=== PATIENT | female | born 1940 | race Caucasian/White ===

== ENCOUNTER 2018-04-16 14:01 | Emergency (ER) | payer OTHER ==
[2018-04-16 16:51] LABS: Absolute Lymphocytes (CBC) 0.8 K/uL (0.7-4.9); Absolute Monocytes 2.7 K/uL (0.1-1.3); Basophils % 0.4 % (0-1.3); Hematocrit 29.4 % (36.0-45.0); Lymphocytes % 2.2 % (15.3-44.8); MPV 9.6 fL (7.6-11.3); Monocytes % 7.6 % (3.3-12.3); RBC Red Blood Cell Count 3.32 M/uL (3.86-4.86)
[2018-04-16 17:11] LABS: Albumin 3.3 g/dL (3.4-5.0); Bilirubin Total 0.9 mg/dL (0.2-1.0); Potassium 3.2 mmol/L (3.5-5.1); Protein, Total 8.6 g/dL (6.4-8.2)
[2018-04-16 17:26] LABS: Blood Morphology Comment NOTED (NOT SEEN); Hypochromasia 1+; Platelet Estimate INCR; Platelets, Giant NOTED
[2018-04-16] MEDS ORDERED: NA CHLORIDE 0.9% 1,000 ML ONE (17:29)
[2018-04-16] MEDS ORDERED: CLINDAMYCIN 900MG/D5W 900 MG/50 ML IVPB IV ONE (17:29)
--- NOTE | 2018-04-16 17:49 | RAD REPORT ---
EXAM DESCRIPTION: CT - Soft Tissue Neck W/Contr - 04/16/2018 5:26 pm CLINICAL HISTORY: Neck pain and neck swelling COMPARISON: None. TECHNIQUE: Computed axial tomography of the neck was obtained. 50 cc Isovue-300 administered intrave nously. Coronal and sagittal reconstruction was performed All CT scans are performed using dose optimization technique as appropriate and may include automated exposure control or mA/KV adjustment according to patient size. FINDINGS: Air is present within the subcutaneous tissues inferior to the left mandible. Ill-defined fluid is present within the subcutaneous tissues as well. An air bubble lies deep to the left mandible within the floor of the mouth. Edema is present within t he left floor of the mouth. A drainable fluid collection is not seen. Mild edema surrounds the left submandibular gland. The pharynx, larynx, tongue base and subglottic trachea appear unremarkable. Mild reactive lymphadenopathy seen. Fluid within the sinuses is not noted. IMPRESSION: Air within the subcutaneous tissues inferior to the left mandible with an air bubble wi thin the left floor of mouth. Diffuse edema is present within the subcutaneous tissues. This is denzel tible with an air producing infection. Mild sialadenitis is also present
--- NOTE | 2018-04-16 19:04 | EDPHYS ---
Physician Documentation [facility] Name: Sylvie Grover Age: 77 yrs Sex: Female : 1940 Arrival Date: 04/16/2018 Time: 14:05 Bed 24 Private MD: URBANO TIERNEY ED Physician Rohith Adrian HPI: 04/16 16:45 This 77 yrs old Female presents to ER via Ambulatory with complaints of pm1 Abscess, Neck Swelling. 16:45 the patient presents with a swollen area of the submental area. Description: swollen, pm1 tense. Onset: The symptoms/episode began/occurred 3 day(s) ago. Possible cause(s): dental infection. Associated signs and symptoms: Pertinent negatives: fever, shortness of breath. Modifying factors: the symptoms are alleviated by nothing, the symptoms are aggravated by nothing. Severity of symptoms: in the emergency department the symptoms are actually worse. The patient has not experienced similar symptoms in the past. The patient has been recently seen by a physician: the patient's primary care provider, yesterday, with similar presenting complaints, given prescription for bactrim and steroids, Followed up with PCP today and was referred to the ER. Historical: - Allergies: 14:19 PENICILLINS; hb 14:19 Demerol; hb - Immunization history:: Adult Immunizations up to date. - Social history:: Smoking status: Patient/guardian denies using tobacco. - Ebola Screening: : No symptoms or risks identified at this time. ROS: 16:45 Constitutional: Negative for fever, chills, and weight loss, Eyes: Negative for injury, pm1 pain, redness, and discharge, Neck: Negative for injury, pain, and swelling, Cardiovascular: Negative for chest pain, palpitations, and edema, Respiratory: Negative for shortness of breath, cough, wheezing, and pleuritic chest pain, Abdomen/GI: Negative for abdominal pain, nausea, vomiting, diarrhea, and constipation. 16:45 Back: Negative for injury and pain, : Negative for injury, bleeding, discharge, and swelling, MS/Extremity: Negative for injury and deformity, Skin: Negative for injury, rash, and discoloration, Neuro: Negative for headache, weakness, numbness, tingling, and seizure. 16:45 ENT: Positive for dental pain, swelling to submandibular area, Negative for ear pain, sore throat, difficulty swallowing, difficulty handling secretions, hoarseness. Exam: 16:45 Constitutional: This is a well developed, well nourished patient who is awake, alert, pm1 and in no acute distress. 16:45 Head/Face: Normocephalic, atraumatic. Eyes: Pupils equal round and reactive to light, extra-ocular motions intact. Lids and lashes normal. Conjunctiva and sclera are non-icteric and not injected. Cornea within normal limits. Periorbital areas with no swelling, redness, or edema. 16:45 Neck: Trachea midline, no thyromegaly or masses palpated, and no cervical lymphadenopathy. Supple, full range of motion without nuchal rigidity, or vertebral point tenderness. No Meningismus. Chest/axilla: Normal chest wall appearance and motion. Nontender with no deformity. No lesions are appreciated. Cardiovascular: Regular rate and rhythm with a normal S1 and S2. No gallops, murmurs, or rubs. Normal PMI, no JVD. No pulse deficits. Respiratory: Lungs have equal breath sounds bilaterally, clear to auscultation and percussion. No rales, rhonchi or wheezes noted. No increased work of breathing, no retractions or nasal flaring. Abdomen/GI: Soft, non-tender, with normal bowel sounds. No distension or tympany. No guarding or rebound. No evidence of tenderness throughout. Back: No spinal tenderness. No costovertebral tenderness. Full range of motion. Skin: Warm, dry with normal turgor. Normal color with no rashes, no lesions, and no evidence of cellulitis. MS/ Extremity: Pulses equal, no cyanosis. Neurovascular intact. Full, normal range of motion. 16:45 ENT: External ear(s): are unremarkable, Ear canal(s): are normal, TM's: are normal, Nose: is normal, Mouth: is normal, Posterior pharynx: Airway: normal, no evidence of obstruction, patent, Dental exam: No dental pain present with palpation to lower left molars, but fillings present. No gum swelling present. Floor of mouth soft and non-tender, 5cm x 4cm x 3cm submandibular mass without fluctuance. No surrounding cellulitis. 16:45 Neuro: Orientation: is normal, Motor: is normal, moves all fours. Vital Signs: 14:18 BP 150 / 77; Pulse 120; Resp 16; Temp 97.9(TE); Pulse Ox 100% on R/A; Pain 8/10; hb 15:51 BP 154 / 83; Pulse 109; Resp 18; Pulse Ox 100% on R/A; tl3 17:12 BP 142 / 68; Pulse 105; Resp 18; Pulse Ox 100% on R/A; tl3 17:58 BP 150 / 69; Pulse 103; Resp 18; Temp 97.8(O); Pulse Ox 100% on R/A; tl3 21:24 BP 154 / 75; Pulse 112; Resp 18; Pulse Ox 100% on R/A; tl3 23:00 BP 153 / 64; Pulse 118; Resp 16; Pulse Ox 100% on R/A; jb4 0308 00:00 BP 138 / 60; Pulse 122; Resp 18; Pulse Ox 98% on R/A; jb4 01:05 BP 140 / 70; Pulse 121; Resp 18; Pulse Ox 100% on R/A; jb4 MDM: 03 16:15 Patient medically screened. pm1 19:00 Data reviewed: vital signs. Data interpreted: Pulse oximetry: on room air is 100 %. pm1 Interpretation: normal. Counseling: I had a detailed discussion with the patient and/or guardian regarding: the historical points, exam findings, and any diagnostic results supporting the discharge/admit diagnosis, lab results, radiology results, the need to transfer to another facility, [facility] does not immediately have the required specialist. 20:00 Physician consultation: ENT [facility] Katelin was contacted at 20:00, regarding pm1 regarding transfer, consult, patient's condition, Will not be able to accept the patient at [facility] because OMFS is not available since this is a dental infection that has moved into the submandibular space.. 20:00 ED course: Recommends transfer to [facility] or [facility] since pm1 they usually have OMFS automation qa tester. 20:47 ED course: [facility] at capacity. pm1 21:25 ED course: [facility] at capacity. pm1 21:56 Physician consultation: [facility] ENT Dionne was contacted at 21:57, regarding consult, pm1 patient's condition, and will see patient in ED, Wants ER to ER transfer and their ER will consult ENT and OMFS to evaluate the patient together. Continue patient on clindamycin. 04/16 16:26 Order name: CBC with Diff; Complete Time: 17:26 pm1 04/16 16:26 Order name: CMP; Complete Time: 17:12 pm1 04/16 16:26 Order name: CT Soft Tissue Neck W/contr; Complete Time: 18:02 pm1 04/16 17:04 Order name: Manual Differential; Complete Time: 17:26 EDMS 04/16 17:09 Order name: Procalcitonin; Complete Time: 18:37 pm1 04/16 17:09 Order name: Blood Culture Adult (2) pm1 04/16 16:26 Order name: IV Saline Lock; Complete Time: 17:15 pm1 Administered Medications: 17:43 Drug: NS 0.9% 1000 ml Route: IV; Rate: 1000 ml; Site: right antecubital; Delivery: tl3 Primary tubing; 19:00 Follow up: IV Status: Completed infusion; IV Intake: 1000ml tl3 17:43 Drug: Clindamycin 900 mg Route: IVPB; Infused Over: 30 mins; Site: right antecubital; tl3 Delivery: Primary tubing; 18:06 Follow up: IV Status: Completed infusion; IV Intake: 50ml tl3 Disposition: 04/17 06:47 Co-signature as Attending Physician, Rohith Adrian MD I agree with the assessment and kdr plan of care. Disposition: 04/16/18 19:03 Transfer ordered to [facility]. Diagnosis are Facial cellulitis - Submental dental infection, Dental pain, Sialadenitis. - Reason for transfer: Higher level of care. - Accepting physician is [facility]. - Condition is Stable. - Problem is new. - Symptoms have improved. Signatures: Dispatcher [employer] EDAZ Rohith Adrian MD MD kdr Marinas, Patrick, NP HAT MEASURER pm1 Lashell Lewis, HERMELINDA RN Kvng Levin RN RN jb4 Morelia Roca RN RN tl3 Corrections: (The following items were deleted from the chart) 04/16 20:47 20:00 Physician consultation: ENT [facility] Katelin was contacted at 20:00, regarding pm1 regarding transfer, consult, patient's condition, Will not be able to accept the patient at [facility] because OMFS is not available since this is a dental infection that has moved into the submandibular space., pm1 22:00 19:03 04/16/2018 19:03 Transfer ordered to [facility]. Diagnosis is pm1 Facial cellulitis - Submental mass; Dental pain; Sialadenitis. Reason for transfer: Higher level of care. Accepting physician is [facility]. Condition is Stable. Problem is new. Symptoms have improved. pm1 04/17 01:07 04/16 22:00 04/16/2018 19:03 Transfer ordered to [facility]. jb4 Diagnosis is Facial cellulitis - Submental dental infection; Dental pain; Sialadenitis. Reason for transfer: Higher level of care. Accepting physician is [facility]. Condition is Stable. Problem is new. Symptoms have improved. pm1
--- NOTE | 2018-04-16 19:04 | ER ---
Nurse's Notes [facility] Name: Sylvie Grover Age: 77 yrs Sex: Female : 1940 Arrival Date: 04/16/2018 Time: 14:05 Bed 24 Private MD: URBANO TIERNEY Diagnosis: Facial cellulitis - Submental dental infection;Dental pain;Sialadenitis Presentation: 04/16 14:17 Presenting complaint: Worsening neck swelling x 1 week. Seen by PCP yesterday, on hb prednisone and Bactrim day 2. Transition of care: patient was not received from another setting of care. Onset of symptoms was April 15, 2018. Risk Assessment: Do you want to hurt yourself or someone else? Patient reports no desire to harm self or others. Care prior to arrival: None. 14:17 Method Of Arrival: Ambulatory hb 14:17 Acuity: [place] 3 hb 17:23 Initial Sepsis Screen: Does the patient meet any 2 criteria? Yes Does the patient have tl3 a suspected source of infection? Yes: Other: abscess. Historical: - Allergies: 14:19 PENICILLINS; hb 14:19 Demerol; hb - Immunization history:: Adult Immunizations up to date. - Social history:: Smoking status: Patient/guardian denies using tobacco. - Ebola Screening: : No symptoms or risks identified at this time. Screenin:50 Abuse screen: Denies threats or abuse. Nutritional screening: No deficits noted. tl3 Tuberculosis screening: No symptoms or risk factors identified. Fall Risk None identified. Assessment: 15:45 General: Appears uncomfortable, well groomed, well developed, well nourished, Behavior tl3 is calm, cooperative, appropriate for age. Pain: Complains of pain in submental area. Neuro: Level of Consciousness is awake, alert, obeys commands, Oriented to person, place, time, situation, Appropriate for age. Cardiovascular: Patient's skin is warm and dry. Respiratory: Airway is patent. GI: No signs and/or symptoms were reported involving the gastrointestinal system. : No signs and/or symptoms were reported regarding the genitourinary system. EENT: EENT: No signs and/or symptoms were reported regarding the EENT system. Derm: Skin temperature is warm large amount of swelling noted under jaw, tender and warm to touch, on Bactrim and Prednisone since yesterday, but only taking "half doses to ease into prescription" Abscess located on submental area. 17:12 Reassessment: Patient appears in no apparent distress at this time. No changes from tl3 previously documented assessment. Patient and/or family updated on plan of care and expected duration. Pain level reassessed. Patient is alert, oriented x 3, equal unlabored respirations, skin warm/dry/pink. lab called with critical value of WBC 35.6, provider notified. 21:24 Reassessment: Patient appears in no apparent distress at this time. No changes from tl3 previously documented assessment. Patient and/or family updated on plan of care and expected duration. Pain level reassessed. Patient is alert, oriented x 3, equal unlabored respirations, skin warm/dry/pink. pt awaiting accepting hospital, extra blankets provided, no other needs at this time. 22:00 Reassessment: Patient appears in no apparent distress at this time. Patient and/or jb4 family updated on plan of care and expected duration. Pain level reassessed. Patient is alert, oriented x 3, equal unlabored respirations, skin warm/dry/pink. 23:00 Reassessment: Patient appears in no apparent distress at this time. Patient and/or jb4 family updated on plan of care and expected duration. Pain level reassessed. Patient is alert, oriented x 3, equal unlabored respirations, skin warm/dry/pink. Pt awaiting transfer to accepting facility. 04/17 00:00 Reassessment: Patient appears in no apparent distress at this time. Patient and/or jb4 family updated on plan of care and expected duration. Pain level reassessed. Patient is alert, oriented x 3, equal unlabored respirations, skin warm/dry/pink. PT awaiting transfer to accepting facility. 01:05 Reassessment: Patient appears in no apparent distress at this time. Patient and/or jb4 family updated on plan of care and expected duration. Pain level reassessed. Patient is alert, oriented x 3, equal unlabored respirations, skin warm/dry/pink. PT being transferred via EMS. Vital Signs: 04/16 14:18 BP 150 / 77; Pulse 120; Resp 16; Temp 97.9(TE); Pulse Ox 100% on R/A; Pain 8/10; hb 15:51 BP 154 / 83; Pulse 109; Resp 18; Pulse Ox 100% on R/A; tl3 17:12 BP 142 / 68; Pulse 105; Resp 18; Pulse Ox 100% on R/A; tl3 17:58 BP 150 / 69; Pulse 103; Resp 18; Temp 97.8(O); Pulse Ox 100% on R/A; tl3 21:24 BP 154 / 75; Pulse 112; Resp 18; Pulse Ox 100% on R/A; tl3 23:00 BP 153 / 64; Pulse 118; Resp 16; Pulse Ox 100% on R/A; jb4 0308 00:00 BP 138 / 60; Pulse 122; Resp 18; Pulse Ox 98% on R/A; jb4 01:05 BP 140 / 70; Pulse 121; Resp 18; Pulse Ox 100% on R/A; jb4 ED Course: 04/16 14:05 Patient arrived in ED. rg4 14:05 URBANO TIERNEY is Private Physician. rg4 14:17 Arm band placed on. hb 14:18 Triage completed. hb 15:42 Morelia Roca, RN is Primary Nurse. tl3 15:50 Patient has correct armband on for positive identification. Bed in low position. Call tl3 light in reach. Side rails up X 1. Adult w/ patient. Pulse ox on. NIBP on. 15:50 No provider procedures requiring assistance completed. tl3 16:15 Miguelangel Acosta NP is PHCP. pm1 16:15 Rohith Adrian MD is Attending Physician. pm1 16:29 Radiology exam delayed due to lab results not completed at this time. (BUN/Creatinine). sj 16:31 Radiology exam delayed due to lab results not completed at this time. (BUN/Creatinine). em2 16:40 Initial lab(s) drawn, by me, sent to lab. Inserted saline lock: 22 gauge in right tl3 antecubital area, using aseptic technique. Blood collected. 16:55 Radiology exam delayed due to lab results not completed at this time. (BUN/Creatinine). sj 17:10 Radiology exam delayed due to lab results not completed at this time. (BUN/Creatinine). vm2 17:[address] via wheelchair. tl3 17:25 CT completed. Patient tolerated procedure well. Patient moved back from CT. vm2 17:27 CT Soft Tissue Neck W/contr In Process Unspecified. EDMS 04/17 01:05 Patient transferred, IV remains in place. jb4 Administered Medications: 04/16 17:43 Drug: NS 0.9% 1000 ml Route: IV; Rate: 1000 ml; Site: right antecubital; Delivery: tl3 Primary tubing; 19:00 Follow up: IV Status: Completed infusion; IV Intake: 1000ml tl3 17:43 Drug: Clindamycin 900 mg Route: IVPB; Infused Over: 30 mins; Site: right antecubital; tl3 Delivery: Primary tubing; 18:06 Follow up: IV Status: Completed infusion; IV Intake: 50ml tl3 Intake: 18:06 IV: 50ml; Total: 50ml. tl3 19:00 IV: 1000ml; Total: 1050ml. tl3 Outcome: 19:03 ER care complete, transfer ordered by . pm1 04/17 01:05 Transferred to [facility]. jb4 Condition: stable Discharge instructions given to patient, family, Instructed on the need for transfer, Demonstrated understanding of instructions. 01:07 Patient left the ED. jb4 Signatures: Dispatcher [employer] EDMS Muna Mccloud Enrique 2 Miguelangel Acosta, AMADOU TRANSLATOR AND INTERPRETER pm1 Lashell Lewis, RN RN Thuy Marin 4 Kvng Levin, HERMELINDA RN jb4 Mari Singh 2 Morelia Roca, HERMELINDA RN tl3 Corrections: (The following items were deleted from the chart) 04/16 14:19 14:18 BP 150 / 77; Pulse 89bpm; Resp 16bpm; Pulse Ox 100% RA; Temp 97.9F Temporal; Pain hb 8/10; hb 17:23 17:23 Initial Sepsis Screen: Does the patient meet any 2 criteria? Yes Does the patient tl3 have a suspected source of infection? Yes: Skin breakdown/wound tl3 04/17 00:40 00:00 Reassessment: Patient appears in no apparent distress at this time. Patient jb4 and/or family updated on plan of care and expected duration. Pain level reassessed. Patient is alert, oriented x 3, equal unlabored respirations, skin warm/dry/pink. jb4 00:41 04/16 23:00 Reassessment: Patient appears in no apparent distress at this time. Patient jb4 and/or family updated on plan of care and expected duration. Pain level reassessed. Patient is alert, oriented x 3, equal unlabored respirations, skin warm/dry/pink. jb4
== END 2018-04-17 01:07 | disposition short-term general hospital (02) ==
LOC: ER 14:01
DX: L03.211 Cellulitis of face (principal); K04.7 Periapical abscess without sinus; K11.20 Sialoadenitis, unspecified; Z88.0 Allergy status to penicillin; Z88.6 Allergy status to analgesic agent
CPT/HCPCS: 96365; 96361; 87040 ×2; 85025; 36415; 80053; 84145; 70491; 99285; Q9967; J7030

== ENCOUNTER 2018-12-29 10:02 | Emergency (ER) | payer OTHER ==
--- OUTSIDE RECORDS SUMMARY | 2018-12-29 10:03 | XMS REPORT ---
:1940 [facility] Address [address] [place] [address] Dr. Martin. [address] [place] [id number] Care Team Providers Name Role Phone Unavailable Unavailable Unavailable Problems This patient has no known problems. Allergies, Adverse Reactions, Alerts This patient has no known allergies or adverse reactions. Medications This patient has no known medications.
[2018-12-29] MEDS ORDERED: KETOROLAC 30 MG/ML INJ ONE (11:03)
[2018-12-29 11:23] LABS: Absolute Lymphocytes (CBC) 1.2 K/uL (0.7-4.9); Basophils % 0.6 % (0-1.3); Lymphocytes % 15.6 % (15.3-44.8); MPV 9.7 fL (7.6-11.3)
--- NOTE | 2018-12-29 11:28 | RAD REPORT ---
EXAM DESCRIPTION: CT - Stone Protocol - 12/29/2018 11:17 am CLINICAL HISTORY: Flank pain. right flank pain COMPARISON: Lumbar Spine Wo Con dated 09/11/2018; Soft Tissue Neck W/Contr dated 04/16/2018 TECHNIQUE: Axial images were obtained without oral or IV contrast. Lack of contrast limits solid org an and vascular assessment. The [id number] spans the entirety of the system partially obscuring uppermost abdomen and lung bases. Coronal reformatted images were obtained and reviewed. All CT scans are performed using dose optimization technique as appropriate and may include automated exposure control or mA/KV adjustment according to patient size. FINDINGS: The lower lung reese are clear. Small hiatal hernia. Imaged portions of the liver and spleen show no suspicious findings on non-contrast imaging. The panc reas and adrenal glands are normal. No pathologic lymphadenopathy in the abdomen or pelvis. Multiple small stones are present in the left kidney. No hydronephrosis. No right-sided calculus seen . 27 mm cystic lesion in the cortex of the right kidney superiorly, incompletely assessed on noncontr ast CT. No bowel obstruction, free air, free fluid or abscess. The appendix is not identified as a discrete s tructure, however, no secondary findings of appendicitis are identified. Sigmoid diverticulosis coli without diverticulitis. Moderate degenerative levoscoliosis of the lumbar spine. IMPRESSION: Punctate left nephrolithiasis without hydronephrosis.
[2018-12-29 11:44] LABS: Albumin 3.5 g/dL (3.4-5.0); Bilirubin Total 0.7 mg/dL (0.2-1.0); Potassium 3.1 mmol/L (3.5-5.1); Protein, Total 6.3 g/dL (6.4-8.2)
[2018-12-29 11:46] LABS: Urine Blood NEGATIVE (NEG); Urine Glucose NEGATIVE (NEG); Urine Protein NEGATIVE (NEG)
--- NOTE | 2018-12-29 11:59 | ER ---
Nurse's Notes [facility] Name: Sylvie Grover Age: 78 yrs Sex: Female : 1940 Arrival Date: 12/29/2018 Time: 10:04 Bed 17 Private MD: Diagnosis: Unspecified renal colic;Right Flank Pain;Right renal cyst;Left nephrolithiasis Presentation: 12/29 10:14 Presenting complaint: Right flank pain x 4 days. Denies fever/urinary s/s. Transition hb of care: patient was not received from another setting of care. Onset of symptoms was December 26, 2018. Risk Assessment: Do you want to hurt yourself or someone else? Patient reports no desire to harm self or others. Initial Sepsis Screen: Does the patient meet any 2 criteria? No. Patient's initial sepsis screen is negative. Does the patient have a suspected source of infection? No. Patient's initial sepsis screen is negative. Care prior to arrival: None. 10:14 Method Of Arrival: Ambulatory hb 10:14 Acuity: JN 3 hb Historical: - Allergies: 10:15 Demerol; hb - Immunization history:: Adult Immunizations up to date. - Social history:: Smoking status: Patient/guardian denies using tobacco. - Ebola Screening: : No symptoms or risks identified at this time. Screenin:50 Abuse screen: Denies threats or abuse. Denies injuries from another. Nutritional ca1 screening: No deficits noted. Tuberculosis screening: No symptoms or risk factors identified. Fall Risk IV access (20 points). Assessment: 10:50 General: Appears in no apparent distress. comfortable, Behavior is calm, cooperative, ca1 appropriate for age. Pain: Complains of pain in right lower quadrant and right mid back Pain currently is 9 out of 10 on a pain scale. Quality of pain is described as sharp, Pain began 5-6 days ago Is intermittent. Neuro: Level of Consciousness is awake, alert, obeys commands, Oriented to person, place, time, situation. Cardiovascular: Heart tones S1 S2 present Capillary refill < 3 seconds Patient's skin is warm and dry. Respiratory: Airway is patent Respiratory effort is even, unlabored, Respiratory pattern is regular, symmetrical, Breath sounds are clear bilaterally. GI: Abdomen is flat, non-distended, Bowel sounds present X 4 quads. Abd is soft and non tender X 4 quads. : No deficits noted. No signs and/or symptoms were reported regarding the genitourinary system. EENT: No deficits noted. No signs and/or symptoms were reported regarding the EENT system. Derm: Skin is intact, is healthy with good turgor, Skin is pink, warm \T\ dry. Musculoskeletal: Circulation, motion, and sensation intact. Capillary refill < 3 seconds, Range of motion: intact in all extremities. 11:43 Reassessment: Patient appears in no apparent distress at this time. Patient and/or ca1 family updated on plan of care and expected duration. Pain level reassessed. Patient is alert, oriented x 3, equal unlabored respirations, skin warm/dry/pink. Dr. Maldonado at bedside. Vital Signs: 10:15 BP 192 / 82; Pulse 89; Resp 16; Temp 97.6; Pulse Ox 100% on R/A; Weight 63.5 kg; Height hb 5 ft. 1 in. (154.94 cm); Pain 8/10; 11:43 BP 175 / 74; Pulse 84; Resp 17 S; Pulse Ox 100% on R/A; ca1 10:15 Body Mass Index 26.45 (63.50 kg, 154.94 cm) hb ED Course: 10:04 Patient arrived in ED. rg4 10:15 Triage completed. hb 10:15 Arm band placed on. hb 10:25 Savanna Banks, RN is Primary Nurse. ca1 10:28 Félix Maldonado MD is Attending Physician. ps1 10:50 Patient has correct armband on for positive identification. Placed in gown. Bed in low ca1 position. Call light in reach. Side rails up X 1. Pulse ox on. NIBP on. Warm blanket given. 11:11 No provider procedures requiring assistance completed. Initial lab(s) drawn, by me, ca1 sent to lab. Inserted saline lock: 22 gauge in right antecubital area, using aseptic technique. Blood collected. 11:18 CT Stone Protocol In Process Unspecified. EDMS 12:10 IV discontinued, intact, bleeding controlled, No redness/swelling at site. Pressure ca1 dressing applied. Administered Medications: 11:12 Drug: TORadol - Ketorolac 15 mg Route: IVP; Site: right antecubital; ca1 12:05 Follow up: Response: No adverse reaction; Pain is decreased ca1 Outcome: 11:58 Discharge ordered by . ps1 12:10 Discharged to home via wheelchair, with family. ca1 12:10 Condition: stable 12:10 Discharge instructions given to patient, Instructed on discharge instructions, follow up and referral plans. no drinking with medication, no driving heavy equipment, medication usage, Demonstrated understanding of instructions, follow-up care, medications, Prescriptions given X 1. 12:19 Patient left the ED. ca1 Signatures: Dispatcher [employer] EDMS Lashell Lewis, RN RN Thuy Marin rg4 Félix Maldonado MD MD ps1 Savanna Banks RN RN ca1
--- NOTE | 2018-12-29 12:00 | EDPHYS ---
Physician Documentation [facility] Name: Sylvie Grover Age: 78 yrs Sex: Female : 1940 Arrival Date: 12/29/2018 Time: 10:04 Bed 17 Private MD: ED Physician Félix Maldonado HPI: 12/29 10:50 This 78 yrs old Female presents to ER via Ambulatory with complaints of Flank ps1 Pain. 10:50 The patient complains of pain in the right mid back. The pain radiates to the right ps1 lower quadrant. Onset: The symptoms/episode began/occurred 5 day(s) ago. Modifying factors: the symptoms are aggravated by movement. Associated signs and symptoms: Pertinent positives: diarrhea, chills and night sweat. Severity of pain: At its worst the pain was severe in the emergency department the pain has improved moderately. The patient has not experienced similar symptoms in the past. states she has never had kidney stones. No urinary symptoms. Had gallstones s/p shira and hysterectomy. . Historical: - Allergies: 10:15 Demerol; hb - Immunization history:: Adult Immunizations up to date. - Social history:: Smoking status: Patient/guardian denies using tobacco. - Ebola Screening: : No symptoms or risks identified at this time. ROS: 10:50 Cardiovascular: Negative for chest pain, palpitations, and edema, Respiratory: Negative ps1 for shortness of breath, cough, wheezing, and pleuritic chest pain, MS/Extremity: Negative for injury and deformity, Neuro: Negative for headache, weakness, numbness, tingling, and seizure. 10:50 Constitutional: Positive for chills. 10:50 : Positive for flank pain, Negative for burning with urination, difficulty urinating. Exam: 10:50 Constitutional: This is a well developed, well nourished patient who is awake, alert, ps1 and in no acute distress. Head/Face: Normocephalic, atraumatic. Chest/axilla: Normal chest wall appearance and motion. Nontender with no deformity. No lesions are appreciated. Cardiovascular: Regular rate and rhythm. No gallops, murmurs, or rubs. Normal PMI, no JVD. No pulse deficits. Respiratory: Lungs have equal breath sounds bilaterally, clear to auscultation and percussion. No rales, rhonchi or wheezes noted. No increased work of breathing, no retractions or nasal flaring. Abdomen/GI: Soft, non-tender, with normal bowel sounds. No distension or tympany. No guarding or rebound. No evidence of tenderness throughout. MS/ Extremity: Pulses equal, no cyanosis. Neurovascular intact. Full, normal range of motion. Neuro: Awake and alert, GCS 15, oriented to person, place, time, and situation. Cranial nerves II-XII grossly intact. Sensory grossly intact. 10:50 : CVA tenderness, on the right. Vital Signs: 10:15 BP 192 / 82; Pulse 89; Resp 16; Temp 97.6; Pulse Ox 100% on R/A; Weight 63.5 kg; Height hb 5 ft. 1 in. (154.94 cm); Pain 8/10; 11:43 BP 175 / 74; Pulse 84; Resp 17 S; Pulse Ox 100% on R/A; ca1 10:15 Body Mass Index 26.45 (63.50 kg, 154.94 cm) hb MDM: 10:54 Patient medically screened. ps1 11:55 Differential diagnosis: nephrolithiasis, pyelonephritis, UTI. Data reviewed: vital ps1 signs, nurses notes, lab test result(s), radiologic studies, and as a result, I will discharge patient. ED course: patient was adamant about getting T3 as she cannot take NSAIDS 2/2 ulcer. Will give 3 day supply for renal colic. 12/29 10:49 Order name: CBC with Diff; Complete Time: 11:29 ps1 12/29 10:49 Order name: CMP ps1 12/29 10:49 Order name: Urine Dipstick-Ancillary (obtain specimen); Complete Time: 11:33 ps1 12/29 10:49 Order name: CT Stone Protocol; Complete Time: 11:34 ps1 12/29 11:36 Order name: Urine Dipstick--Ancillary (enter results) bd Administered Medications: 11:12 Drug: TORadol - Ketorolac 15 mg Route: IVP; Site: right antecubital; ca1 12:05 Follow up: Response: No adverse reaction; Pain is decreased ca1 Disposition: 12/29/18 11:58 Discharged to Home. Impression: Unspecified renal colic, Right Flank Pain, Right renal cyst, Left nephrolithiasis. - Condition is Stable. - Discharge Instructions: Renal Colic, [id number]. - Prescriptions for Tylenol- Codeine #3 300-30 mg Oral Tablet - take 2 tablets by ORAL route every 6 hours As needed; 12 tablet. - Medication Reconciliation Form, Thank You Letter, Antibiotic Education, Prescription Opioid Use form. - Follow up: Emergency Department; When: As needed; Reason: Worsening of condition. Follow up: Private Physician; When: As needed; Reason: Recheck today's complaints, Continuance of care, Re-evaluation by your physician. - Problem is new. - Symptoms have improved. Signatures: Dispatcher [employer] EDMS Lashell Lewis RN RN hb Félix Maldonado MD MD ps1 Savanna Banks RN RN ca1 Corrections: (The following items were deleted from the chart) 12:19 11:58 12/29/2018 11:58 Discharged to Home. Impression: Unspecified renal colic; Right ca1 Flank Pain; Right renal cyst; Left nephrolithiasis. Condition is Stable. Forms are Medication Reconciliation Form, Thank You Letter, Antibiotic Education, Prescription Opioid Use. Follow up: Emergency Department; When: As needed; Reason: Worsening of condition. Follow up: Private Physician; When: As needed; Reason: Recheck today's complaints, Continuance of care, Re-evaluation by your physician. Problem is new. Symptoms have improved. ps1
[2018-12-29 12:27] VITALS: TEMP 97.6; O2SAT 100
[2018-12-29 12:29] VITALS: BP 175/74
== END 2018-12-29 12:19 | disposition home or self-care (01) ==
LOC: ER 10:02
DX: N20.0 Calculus of kidney (principal); N28.1 Cyst of kidney, acquired; N23 Unspecified renal colic; Z88.5 Allergy status to narcotic agent
CPT/HCPCS: 36415; 74176; 76377; 80053; 81003; 85025; 96374; 99284